=== PATIENT | female | born 1955 | race Caucasian/White ===

== ENCOUNTER → 2016-08-27 | Outpatient (REF) | payer MEDICARE, OTHER ==
[~2016-08-27] MED LIST: BUTR10DI2 TD; DETR4CAP10 PO; ESTR625TA PO; LAMI200T3 PO; LASI40TA PO; LEXA1TAB2 PO; LIDO1OIN2 TOP; MELO15TA4 PO; NEUR100C PO; NEUR300C PO; NEXI40CA PO; POTA10TA44 PO; RISP2TAB30 PO; ROPI1TAB PO; TEMA30CA PO; TYLE325T5 PO; VIT D PO
[2016-08-27 16:52] LABS: MEAN CORPUSCULAR HEMOGLOBIN 33.5 pg (27.0-33.0); MEAN CORPUSCULAR VOLUME 98.6 fl (80.0-96.0); RED CELL DISTRIBUTION WIDTH 12.9 % (11.5-14.5); WHITE BLOOD COUNT 5.2 K/mm3 (4.0-10.0)
[2016-08-27 16:57] LABS: ALBUMIN 3.3 GM/DL (3.2-5.2); ALKALINE PHOSPHATASE 120 U/L (45-117); ALT/SGPT 10 U/L (12-78); ANION GAP 8 MEQ/L (8-16); AST/SGOT 10 U/L (15-37); BILIRUBIN,TOTAL 0.2 MG/DL (0.2-1.0); BLOOD UREA NITROGEN 13 MG/DL (7-18); CALCIUM LEVEL 8.9 MG/DL (8.5-10.1); CARBON DIOXIDE LEVEL 31 MEQ/L (21-32); CHLORIDE LEVEL 105 MEQ/L (98-107); CHOLESTEROL LEVEL 203 MG/DL (<200); CREATININE FOR GFR 0.92 MG/DL (0.55-1.02); GLOMERULAR FILTRATION RATE > 60.0 (>51); GLUCOSE, FASTING 90 MG/DL (70-105); POTASSIUM SERUM 4.5 MEQ/L (3.5-5.1); SODIUM LEVEL 144 MEQ/L (136-145); TOTAL PROTEIN 6.6 GM/DL (6.4-8.2); TRIGLYCERIDES LEVEL 135 MG/DL (<150)
== END ==
LOC: M SFHCLERA 10:12
PROVIDERS: ATTEND Family Medicine
DX: Z13.220 Encounter for screening for lipoid disorders (principal); E55.9 Vitamin D deficiency, unspecified; Z79.899 Other long term (current) drug therapy
CPT/HCPCS: 80053; 80061; 82306; 85027; 90471; 90670; 90715; G0009; G0463

== ENCOUNTER → 2016-09-01 | Outpatient (CLI) | payer MEDICARE, OTHER ==
--- NOTE | 2016-09-01 13:06 | REPMRS ---
Patient History The patient states she had a clinical breast exam in 09/04 Patient is postmenopausal. Family history of endometrial cancer in mother under age 50, breast cancer in mother at age 50 or over, breast cancer in maternal aunt at age 50 or over, prostate cancer in brother at age 50, and prostate cancer in brother under age 50. Took hormonal contraceptives for 5 years. Taking unspecified hormones for 6 years. Digital Woman Screen Mammo: September 01, 2016 - Exam #: [id number] Bilateral CC and MLO view(s) were taken. Technologist: Smitha Deleon, Technologist Prior study comparison: July 22, 2015, digital bilateral screening mammo, performed at [facility]. May 2014, digital bilateral screening mammo, performed at [facility]. May 22, 2013, digital bilateral screening mammo, performed at [facility]. FINDINGS: There are scattered fibroglandular densities. There has been no change in the appearance of the mammogram from the prior studies. There is a mild amount of scattered fibroglandular density which is fairly symmetric. There is no interval development of dominant mass, architectural distortion, or clustered microcalcification suggestive of malignancy. ASSESSMENT: BI-RADS/ACR category 1 mammogram. Negative. Recommendation Routine screening mammogram in 1 year (for women over age 40). This mammogram was interpreted with the aid of an FDA-approved computer-aided dectection system. Electronically Signed By: Rd Sidhu MD 09/01/16 [id number]
== END ==
LOC: M WHC 12:08
PROVIDERS: ATTEND Nurse Practitioner Women's Health
DX: Z12.31 Encounter for screening mammogram for malignant neoplasm of breast (principal); Z78.0 Asymptomatic menopausal state; Z80.49 Family history of malignant neoplasm of other genital organs; Z80.3 Family history of malignant neoplasm of breast
CPT/HCPCS: G0202; G0463

== ENCOUNTER → 2017-05-28 | Outpatient (CLI) | payer MEDICARE, OTHER ==
[~2017-05-28] MED LIST changes: +BUTR10DI TD; -BUTR10DI2 TD; +DETR4CAP PO; -DETR4CAP10 PO; +LAMI1TAB9 PO; -LAMI200T3 PO; +POTA10TA17 PO; -POTA10TA44 PO; -RISP2TAB30 PO; +RISP2TAB32 PO
[2017-05-28 18:11] LABS: MEAN CORPUSCULAR HEMOGLOBIN 32.6 pg (27.0-33.0); MEAN CORPUSCULAR HGB CONC 33.3 g/dl (32.0-36.5); MEAN CORPUSCULAR VOLUME 97.7 fl (80.0-96.0); PLATELET COUNT, AUTOMATED 354 10^3/uL (150-450); RED CELL DISTRIBUTION WIDTH 11.9 % (11.5-14.5); WHITE BLOOD COUNT 7.4 10^3/uL (4.0-10.0)
[2017-05-28 18:28] LABS: ALBUMIN 3.4 GM/DL (3.2-5.2); ALBUMIN/GLOBULIN RATIO 0.87 (1.00-1.93); ALKALINE PHOSPHATASE 113 U/L (45-117); ALT/SGPT 17 U/L (12-78); ANION GAP 8 MEQ/L (8-16); AST/SGOT 8 U/L (7-37); BILIRUBIN,TOTAL 0.1 MG/DL (0.2-1.0); BLOOD UREA NITROGEN 14 MG/DL (7-18); CALCIUM LEVEL 8.9 MG/DL (8.5-10.1); CARBON DIOXIDE LEVEL 32 MEQ/L (21-32); CHLORIDE LEVEL 102 MEQ/L (98-107); CREATININE FOR GFR 0.81 MG/DL (0.55-1.02); GLOMERULAR FILTRATION RATE > 60.0 (>51); GLUCOSE, FASTING 67 MG/DL (70-105); POTASSIUM SERUM 4.2 MEQ/L (3.5-5.1); SODIUM LEVEL 142 MEQ/L (136-145); TOTAL PROTEIN 7.3 GM/DL (6.4-8.2)
== END ==
LOC: M SMT 14:04
PROVIDERS: ATTEND Specialist
DX: Z01.818 Encounter for other preprocedural examination (principal); N39.46 Mixed incontinence

== ENCOUNTER → 2017-06-29 | Outpatient (REF) | payer MEDICARE, OTHER ==
[2017-06-29 18:17] LABS: MAGNESIUM LEVEL 1.9 MG/DL (1.8-2.4)
== END ==
LOC: M SFHCLERA 12:16
DX: K21.0 Gastro-esophageal reflux disease with esophagitis (principal)
CPT/HCPCS: 83735

== ENCOUNTER → 2017-07-05 | Outpatient (CLI) | payer MEDICARE, OTHER ==
[2017-07-05 11:54] LABS: HEMATOCRIT 36.8 % (36.0-47.0); HEMOGLOBIN 12.2 g/dl (12.0-16.0); MEAN CORPUSCULAR HEMOGLOBIN 32.4 pg (27.0-33.0); MEAN CORPUSCULAR HGB CONC 33.2 g/dl (32.0-36.5); MEAN CORPUSCULAR VOLUME 97.9 fl (80.0-96.0); PLATELET COUNT, AUTOMATED 305 10^3/uL (150-450); RED BLOOD COUNT 3.76 10^6/uL (4.00-5.40); RED CELL DISTRIBUTION WIDTH 12.1 % (11.5-14.5); WHITE BLOOD COUNT 5.4 10^3/uL (4.0-10.0)
[2017-07-05 12:16] LABS: ALBUMIN 3.4 GM/DL (3.2-5.2); ALKALINE PHOSPHATASE 117 U/L (45-117); ALT/SGPT 16 U/L (12-78); ANION GAP 8 MEQ/L (8-16); AST/SGOT 13 U/L (7-37); BILIRUBIN,TOTAL 0.2 MG/DL (0.2-1.0); BLOOD UREA NITROGEN 12 MG/DL (7-18); CARBON DIOXIDE LEVEL 30 MEQ/L (21-32); CHLORIDE LEVEL 103 MEQ/L (98-107); CREATININE FOR GFR 0.85 MG/DL (0.55-1.02); GLOMERULAR FILTRATION RATE > 60.0 (>51); GLUCOSE, FASTING 177 MG/DL (70-105); POTASSIUM SERUM 3.5 MEQ/L (3.5-5.1); SODIUM LEVEL 141 MEQ/L (136-145); TOTAL PROTEIN 6.8 GM/DL (6.4-8.2)
[2017-07-05 12:31] LABS: APPEARANCE, URINE CLOUDY (CLEAR); BACTERIA, URINE AUTO 1+ (NEGATIVE); BILIRUBIN, URINE AUTO NEGATIVE (NEGATIVE); BLOOD, URINE BLOOD NEGATIVE (NEGATIVE); COLOR, URINE AMBER (YELLOW); GLUCOSE, URINE (UA) AUTO NEGATIVE (NEGATIVE); KETONE, URINE AUTO TRACE mg/dL (NEGATIVE); LEUKOCYTE ESTERASE, URINE AUTO 1+ (NEGATIVE); MUCUS, URINE SMALL (NEGATIVE); NITRITE, URINE AUTO NEGATIVE (NEGATIVE); PROTEIN, URINE AUTO NEGATIVE (NEGATIVE); RBC, URINE AUTO 2 /HPF (0-3); SPECIFIC GRAVITY URINE AUTO 1.014 (1.002-1.035); SQUAMOUS EPITHELIAL CELL UR AU 1 /HPF (0-6); UROBILINOGEN, URINE AUTO 0.2 mg/dL (0.0-2.0); WBC, URINE AUTO 8 /HPF (0-3)
== END ==
LOC: M LAB 10:44
DX: Z01.818 Encounter for other preprocedural examination (principal); N39.46 Mixed incontinence
CPT/HCPCS: 93005

== ENCOUNTER → 2017-07-09 | Outpatient (REF) | payer MEDICARE, OTHER ==
[2017-07-09 15:52] LABS: ESTIMATED AVERAGE GLUCOSE 120 MG/DL (60-110); HEMOGLOBIN A1c 5.8 %
== END ==
LOC: M SFHCLERA 08:36
DX: R73.9 Hyperglycemia, unspecified (principal)
CPT/HCPCS: 83036

== ENCOUNTER 2017-07-12 06:43 | Day surgery (SDC) | payer MEDICARE, OTHER ==
[~2017-07-12 06:43] MED LIST changes: +BOTULINUM INJ 100 UNITS (J0585) IM; -BUTR10DI TD; -DETR4CAP PO; -ESTR625TA PO; -LAMI1TAB9 PO; -LASI40TA PO; -LEXA1TAB2 PO; -LIDO1OIN2 TOP; -MELO15TA4 PO; -NEUR100C PO; -NEUR300C PO; -NEXI40CA PO; -POTA10TA17 PO; -RISP2TAB32 PO; -ROPI1TAB PO; -TEMA30CA PO; -TYLE325T5 PO; -VIT D PO
[2017-07-12] MEDS: BOTULINUM INJ 100 UNITS (J0585) XX ×2 (07:00)
[2017-07-12] MEDS: LR 1,000 ML IV ×2 (07:31)
[2017-07-12] MEDS: LIDOCAINE 2% MDV 20 ML VIAL As Ordered ×2 (08:47)
[2017-07-12] MEDS: LIDOCAINE 2% 5ML JELLY UROJET As Ordered ×2 (08:47)
[2017-07-12] MEDS: BOTULINUM INJ 100 UNITS (J0585) As Ordered ×2 (08:48)
[2017-07-12] MEDS ORDERED: GLYCOPYRROLATE INJ 0.2 MG/ML 2 ML VIAL As Ordered ×2 (08:50)
[2017-07-12] MEDS ORDERED: NEOSTIGMINE 10 MG/10 ML VIAL (J2710) As Ordered ×2 (08:50)
[2017-07-12] MEDS ORDERED: ONDANSETRON 4MG/2ML VIAL (J2405) As Ordered ×2 (08:50)
[2017-07-12] MEDS ORDERED: fentaNYL 100 MCG/2 ML INJECTION (J3010) As Ordered ×2 (08:52)
[2017-07-12] MEDS ORDERED: MIDAZOLAM INJ 2 MG/2 ML VIAL (J2250) As Ordered ×2 (08:52)
[2017-07-12] MEDS ORDERED: fentaNYL 100 MCG/2 ML INJECTION (J3010) IV ×2 (09:45)
[2017-07-12] MEDS ORDERED: ONDANSETRON 4MG/2ML VIAL (J2405) IV ×2 (09:45)
[2017-07-12] MEDS ORDERED: METOCLOPRAMIDE INJ 10MG/2ML VIAL (J2765) IV ×2 (09:45)
[2017-07-12] MEDS ORDERED: LR 1,000 ML IV ×2 (09:45)
[2017-07-12] MEDS: PERCOCET 5MG/325MG TAB PO ×4 (09:50→10:21)
== END 2017-07-12 12:10 | disposition home or self-care (01) ==
LOC: M SDC 06:43
DX: R39.15 Urgency of urination (principal); R35.0 Frequency of micturition; N39.41 Urge incontinence; N32.81 Overactive bladder; M54.12 Radiculopathy, cervical region; M54.16 Radiculopathy, lumbar region; F31.9 Bipolar disorder, unspecified; F41.9 Anxiety disorder, unspecified; F32.9 Major depressive disorder, single episode, unspecified; E55.9 Vitamin D deficiency, unspecified; K21.0 Gastro-esophageal reflux disease with esophagitis; K44.9 Diaphragmatic hernia without obstruction or gangrene; G25.81 Restless legs syndrome; R60.0 Localized edema; G47.00 Insomnia, unspecified; K22.70 Barrett's esophagus without dysplasia; M12.9 Arthropathy, unspecified; R42 Dizziness and giddiness; Z79.899 Other long term (current) drug therapy; Z90.3 Acquired absence of stomach [part of]; Z90.710 Acquired absence of both cervix and uterus; Z98.84 Bariatric surgery status
CPT/HCPCS: 52265

== ENCOUNTER 2017-08-06 14:08 | Emergency (ER) | payer MEDICARE, OTHER ==
[2017-08-06] MEDS: ONDANSETRON 4MG/2ML VIAL (J2405) IV ×2 (16:30)
[2017-08-06] MEDS: NS 1,000 ML IV ×2 (16:30)
[2017-08-06] MEDS: KETOROLAC 30 MG/ML VIAL (J1885) IV ×2 (16:56)
[2017-08-06 17:09] LABS: CALCIUM OXALATE CRYSTALS RFX SMALL; KETONE, URINE AUTO RFX TRACE mg/dL (NEGATIVE); MUCUS, URINE RFX SMALL (NEGATIVE); NITRITE, URINE AUTO RFX NEGATIVE (NEGATIVE); RBC, URINE AUTO RFX 21 /HPF (0-3); SQUAM EPITHELIAL CELL UR AURFX 11 /HPF (0-6); TRANSITIONAL EPITHELIAL AU RFX <1 /HPF
[2017-08-06 17:11] LABS: LEUKOCYTE ESTERASE UR AUTO RFX 2+ (NEGATIVE); WBC, URINE AUTO RFX 40 /HPF (0-3)
[2017-08-06] MEDS: MORPHINE 2 MG/ML 1ML SYRINGE (J2270) IV ×2 (17:14)
[2017-08-06 17:41] LABS: BASO # 0.1 10^3/uL (0.0-0.2); BASO % 0.7 % (0.0-1.0); EOS # 0.2 10^3/uL (0.0-0.50); EOS % 3.1 % (0.0-3.0); HEMATOCRIT 38.4 % (36.0-47.0); HEMOGLOBIN 12.9 g/dl (12.0-16.0); IMMATURE GRANULOCYTE % 0.3 % (0-3.0); LYMPH # 3.5 10^3/uL (1.5-4.5); LYMPH % 49.1 % (24.0-44.0); MEAN CORPUSCULAR HEMOGLOBIN 32.4 pg (27.0-33.0); MEAN CORPUSCULAR HGB CONC 33.6 g/dl (32.0-36.5); MEAN CORPUSCULAR VOLUME 96.5 fl (80.0-96.0); MONO # 0.6 10^3/uL (0.0-0.8); MONO % 7.8 % (0.0-5.0); NEUTROPHILS # 2.8 10^3/uL (1.8-7.7); PLATELET COUNT, AUTOMATED 333 10^3/uL (150-450); RED BLOOD COUNT 3.98 10^6/uL (4.00-5.40); RED CELL DISTRIBUTION WIDTH 12.1 % (11.5-14.5); WHITE BLOOD COUNT 7.1 10^3/uL (4.0-10.0)
[2017-08-06 18:01] LABS: ALBUMIN 3.6 GM/DL (3.2-5.2); ALBUMIN/GLOBULIN RATIO 0.88 (1.00-1.93); ALKALINE PHOSPHATASE 125 U/L (45-117); ALT/SGPT 15 U/L (12-78); AMYLASE 33 U/L (25-115); ANION GAP 7 MEQ/L (8-16); AST/SGOT 17 U/L (7-37); BILIRUBIN,DIRECT < 0.1 MG/DL (0.0-0.2); BILIRUBIN,TOTAL 0.3 MG/DL (0.2-1.0); BLOOD UREA NITROGEN 10 MG/DL (7-18); CALCIUM LEVEL 9.2 MG/DL (8.5-10.1); CARBON DIOXIDE LEVEL 33 MEQ/L (21-32); CHLORIDE LEVEL 101 MEQ/L (98-107); CREATININE FOR GFR 0.81 MG/DL (0.55-1.30); GLOMERULAR FILTRATION RATE > 60.0 (>51); GLUCOSE, FASTING 95 MG/DL (70-100); LIPASE 129 U/L (73-393); POTASSIUM SERUM 3.7 MEQ/L (3.5-5.1); SODIUM LEVEL 141 MEQ/L (136-145); TOTAL PROTEIN 7.7 GM/DL (6.4-8.2)
== END 2017-08-06 18:48 | disposition home or self-care (01) ==
LOC: M ED 14:08
DX: N20.1 Calculus of ureter (principal); N39.0 Urinary tract infection, site not specified; Z79.890 Hormone replacement therapy; Z79.899 Other long term (current) drug therapy; Z98.0 Intestinal bypass and anastomosis status; Z98.890 Other specified postprocedural states
CPT/HCPCS: J2405

== ENCOUNTER → 2017-08-23 | Outpatient (CLI) | payer MEDICARE, OTHER ==
[2017-08-23 14:05] LABS: HEMATOCRIT 34.9 % (36.0-47.0); HEMOGLOBIN 11.9 g/dl (12.0-16.0); MEAN CORPUSCULAR HEMOGLOBIN 33.2 pg (27.0-33.0); MEAN CORPUSCULAR HGB CONC 34.1 g/dl (32.0-36.5); MEAN CORPUSCULAR VOLUME 97.5 fl (80.0-96.0); PLATELET COUNT, AUTOMATED 356 10^3/uL (150-450); RED BLOOD COUNT 3.58 10^6/uL (4.00-5.40); RED CELL DISTRIBUTION WIDTH 12.2 % (11.5-14.5); WHITE BLOOD COUNT 6.1 10^3/uL (4.0-10.0)
[2017-08-23 14:07] LABS: BACTERIA, URINE LARGE AMOUNT; HYALINE CAST, URINE NONE SEEN /lpf (0-1); MICROSCOPIC EXAM PERFORMED
[2017-08-23 14:08] LABS: CALCIUM OXALATE CRYSTALS,URINE SMALL AMOUNT /hpf; SQUAMOUS EPITHELIAL CELL URINE LARGE AMOUNT /hpf (SMALL AMT)
[2017-08-23 14:25] LABS: ANION GAP 8 MEQ/L (8-16); BLOOD UREA NITROGEN 10 MG/DL (7-18); CALCIUM LEVEL 9.5 MG/DL (8.8-10.2); CARBON DIOXIDE LEVEL 33 MEQ/L (21-32); CHLORIDE LEVEL 98 MEQ/L (98-107); CREATININE FOR GFR 0.85 MG/DL (0.55-1.30); GLOMERULAR FILTRATION RATE > 60.0 (>45); GLUCOSE, FASTING 92 MG/DL (70-100); SODIUM LEVEL 139 MEQ/L (136-145)
== END ==
LOC: M SMT 10:30
DX: N20.0 Calculus of kidney (principal)
CPT/HCPCS: 80048

== ENCOUNTER 2017-08-27 07:14 | Day surgery (SDC) | payer MEDICARE, OTHER ==
[2017-08-27] MEDS ORDERED: LIDOCAINE 1% SDV 5 ML VIAL SQ (07:30)
[2017-08-27] MEDS: LR 1,000 ML IV (08:00)
[2017-08-27] MEDS ORDERED: fentaNYL 100 MCG/2 ML INJECTION (J3010) As Ordered (08:32)
[2017-08-27] MEDS ORDERED: dexameTHASONE 4 MG/ML 1ML VIAL (J1100) As Ordered (08:32)
[2017-08-27] MEDS ORDERED: MIDAZOLAM INJ 2 MG/2 ML VIAL (J2250) As Ordered (08:32)
[2017-08-27] MEDS ORDERED: LIDOCAINE 2% INJ 100 MG/5 ML SDV (FOR ANES.) As Ordered (08:32)
[2017-08-27] MEDS ORDERED: PROPOFOL 200 MG/20 ML VIAL As Ordered (08:32)
[2017-08-27] MEDS ORDERED: ONDANSETRON 4MG/2ML VIAL (J2405) As Ordered (08:32)
[2017-08-27] MEDS ORDERED: ePHEDrine SULFATE 25 MG/5 ML(5MG/ML) SYRINGE As Ordered (09:05)
[2017-08-27] MEDS: CONRAY-60 60% 50ML VIAL (Q9961) As Ordered (09:20)
[2017-08-27] MEDS ORDERED: SUGAMMADEX SODIUM 500 MG/5 ML VIAL (BRIDION) As Ordered (09:31)
[2017-08-27] MEDS ORDERED: fentaNYL 100 MCG/2 ML INJECTION (J3010) IV (10:15)
[2017-08-27] MEDS ORDERED: ONDANSETRON 4MG/2ML VIAL (J2405) IV (10:15)
[2017-08-27] MEDS ORDERED: HYDROmorphone HCL 1 MG/ML SYRINGE (J1170) IV (10:15)
[2017-08-27] MEDS ORDERED: LR 1,000 ML IV (10:15)
[2017-08-27] MEDS: PERCOCET 5MG/325MG TAB PO (10:35)
== END 2017-08-27 11:50 | disposition home or self-care (01) ==
LOC: M SDC 07:14
DX: N20.1 Calculus of ureter (principal); I10 Essential (primary) hypertension; K21.9 Gastro-esophageal reflux disease without esophagitis; F43.10 Post-traumatic stress disorder, unspecified; D64.9 Anemia, unspecified; G47.30 Sleep apnea, unspecified; Z87.891 Personal history of nicotine dependence; Z79.899 Other long term (current) drug therapy
CPT/HCPCS: 52356

== ENCOUNTER 2017-10-18 09:38 | Day surgery (SDC) | payer MEDICARE, OTHER ==
[~2017-10-18 09:38] MED LIST changes: -BOTULINUM INJ 100 UNITS (J0585) IM; +PROPOFOL 200 MG/20 ML VIAL As Ordered
[2017-10-18] MEDS: NS 1,000 ML IV (09:45)
== END 2017-10-18 11:44 | disposition home or self-care (01) ==
LOC: M OPP 09:38
DX: Z12.11 Encounter for screening for malignant neoplasm of colon (principal); Z86.010 Personal history of colon polyps; K57.30 Diverticulosis of large intestine without perforation or abscess without bleeding; K64.8 Other hemorrhoids; K22.70 Barrett's esophagus without dysplasia; K31.89 Other diseases of stomach and duodenum; Z98.84 Bariatric surgery status; E78.5 Hyperlipidemia, unspecified; K21.9 Gastro-esophageal reflux disease without esophagitis; D64.9 Anemia, unspecified; M54.9 Dorsalgia, unspecified; F41.9 Anxiety disorder, unspecified; F31.9 Bipolar disorder, unspecified; G47.8 Other sleep disorders; G47.30 Sleep apnea, unspecified; R06.83 Snoring; R60.9 Edema, unspecified; R32 Unspecified urinary incontinence; Z79.899 Other long term (current) drug therapy; Z80.8 Family history of malignant neoplasm of other organs or systems; Z80.3 Family history of malignant neoplasm of breast; Z80.49 Family history of malignant neoplasm of other genital organs
CPT/HCPCS: G0105

== ENCOUNTER → 2017-12-07 | Outpatient (REF) | payer MEDICARE, OTHER | LOC: M SFHCLERA 08:00 | DX: Z13.220 Encounter for screening for lipoid disorders (principal) ==

== ENCOUNTER → 2017-12-07 | Outpatient (CLI) | payer MEDICARE, OTHER ==
[2017-12-07 12:09] LABS: CHOLESTEROL LEVEL 216 MG/DL (<200); HDL CHOLESTEROL 60 MG/DL (>40); NON-HDL-C 156 MG/DL; TRIGLYCERIDES LEVEL 170 MG/DL (<150)
== END ==
LOC: M LRY 08:05
DX: Z13.220 Encounter for screening for lipoid disorders (principal); Z79.899 Other long term (current) drug therapy
CPT/HCPCS: 80061

== ENCOUNTER → 2018-01-10 | Outpatient (REF) | payer MEDICARE, OTHER ==
[2018-01-10 18:39] LABS: BACTERIA, URINE AUTO NEGATIVE (NEGATIVE); RBC, URINE AUTO 0 /HPF (0-3); SQUAMOUS EPITHELIAL CELL UR AU 0 /HPF (0-6); WBC, URINE AUTO 0 /HPF (0-3)
== END ==
LOC: M SMT 17:06
DX: N20.0 Calculus of kidney (principal)
CPT/HCPCS: 81015

== ENCOUNTER → 2018-03-11 | Outpatient (CLI) | payer MEDICARE, OTHER | LOC: M RAD 09:26 | DX: Z12.31 Encounter for screening mammogram for malignant neoplasm of breast (principal) | CPT/HCPCS: 77067 ==

== ENCOUNTER → 2018-07-14 | Outpatient (CLI) | payer MEDICARE, OTHER ==
[~2018-07-14] MED LIST changes: +BACT800T5 PO; +BUTR10DI TD; +CIPR-249 PO; +CITRTAB19 PO; +COLA100C5 PO; +DETR4CAP PO; +DITR1TAB PO; +ESTR625TA PO; +FURO20TA2 PO; +GABA-1171 PO; +LAMI1TAB9 PO; +LASI40TA9 PO; +LEXA1TAB2 PO; +LIDO1OIN2 TOP; +MECL-68 PO; +MELO15TA28 PO; +NEUR100C PO; +NEUR300C PO; +NEXI40CA PO; +OPUR1TAB PO; +PANT40TA3 PO; +PERC5TAB12 PO; +POTA10TA17 PO; -PROPOFOL 200 MG/20 ML VIAL As Ordered; +RISP2TAB32 PO; +ROPI1TAB PO; +TEMA30CA PO; +TYLE325T5 PO; +VIT D PO
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
== END ==
LOC: M PAIN 14:00
PROVIDERS: ATTEND Anesthesiology
DX: M96.1 Postlaminectomy syndrome, not elsewhere classified (principal); M51.16 Intervertebral disc disorders with radiculopathy, lumbar region; M51.17 Intervertebral disc disorders with radiculopathy, lumbosacral region; F31.9 Bipolar disorder, unspecified; F41.9 Anxiety disorder, unspecified; K21.9 Gastro-esophageal reflux disease without esophagitis; G25.81 Restless legs syndrome; E66.9 Obesity, unspecified; Z68.38 Body mass index [BMI] 38.0-38.9, adult; Z79.899 Other long term (current) drug therapy; Z98.84 Bariatric surgery status

== ENCOUNTER → 2018-07-18 | Outpatient (CLI) | payer MEDICARE, OTHER ==
[2018-07-18 13:06] LABS: THYROID STIMULATING HORMONE 1.43 uIU/ML (0.358-3.740)
[2018-07-18 13:08] LABS: FOLATE 16.7 NG/ML
[2018-07-19 14:55] LABS: CERULOPLASMIN 35.7 mg/dL (19.0-39.0)
== END ==
LOC: M LAB 11:16
PROVIDERS: ATTEND Psychiatry & Neurology Neurology
DX: R25.1 Tremor, unspecified (principal); E53.8 Deficiency of other specified B group vitamins; E03.9 Hypothyroidism, unspecified

== ENCOUNTER → 2018-07-26 | Outpatient (CLI) | payer MEDICARE, OTHER ==
[~2018-07-26] MED LIST changes: +ISOVUE-M 300 61% 15ML VIAL (Q9967) As Ordered ONE; +LIDOCAINE 1% SDV INJ 30 ML VIAL As Ordered ONE; +diazePAM 5 MG TAB As Ordered ONE; +methylPREDNISolone SUSP 40 MG/ML (DEPO-medrol) VIAL (J1030) As Ordered ONE; +oxyCODONE 5MG TAB As Ordered ONE
--- NOTE | 2018-07-26 15:02 | REP ---
Sacrum and coccyx: Limited study three views. History: Caudal epidural injection for pain. 31 seconds of fluoroscopy time is reported. Findings: A sequence of three last image hold fluoroscopically obtained spot radiographs of the sacrum document needle position and contrast injection associated with caudal epidural injection procedure. Electronically Signed by Arthur Sidhu MD 07/26/2018 08:40 P
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
== END ==
LOC: M PAIN 10:15
PROVIDERS: ATTEND Anesthesiology
DX: M96.1 Postlaminectomy syndrome, not elsewhere classified (principal); F31.9 Bipolar disorder, unspecified; F41.9 Anxiety disorder, unspecified; E55.9 Vitamin D deficiency, unspecified; K21.9 Gastro-esophageal reflux disease without esophagitis; G25.81 Restless legs syndrome; Z79.899 Other long term (current) drug therapy; Z98.84 Bariatric surgery status
CPT/HCPCS: 62323; 90834; J1030; Q9967

== ENCOUNTER → 2018-08-26 | Outpatient (CLI) | payer MEDICARE, OTHER ==
[~2018-08-26] MED LIST changes: -ISOVUE-M 300 61% 15ML VIAL (Q9967) As Ordered ONE; -LIDOCAINE 1% SDV INJ 30 ML VIAL As Ordered ONE; -diazePAM 5 MG TAB As Ordered ONE; -methylPREDNISolone SUSP 40 MG/ML (DEPO-medrol) VIAL (J1030) As Ordered ONE; -oxyCODONE 5MG TAB As Ordered ONE
[2018-08-26 14:18] LABS: BLOOD UREA NITROGEN 19 MG/DL (7-18); CREATININE FOR GFR 0.89 MG/DL (0.55-1.30); GLOMERULAR FILTRATION RATE > 60.0 (>45)
== END ==
LOC: M LAB 12:46
PROVIDERS: ATTEND Anesthesiology
DX: M96.1 Postlaminectomy syndrome, not elsewhere classified (principal)

== ENCOUNTER → 2018-08-26 | Outpatient (CLI) | payer MEDICARE, OTHER ==
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
== END ==
LOC: M PAIN 10:45
PROVIDERS: ATTEND Anesthesiology
DX: M51.16 Intervertebral disc disorders with radiculopathy, lumbar region (principal); M96.1 Postlaminectomy syndrome, not elsewhere classified; Z79.899 Other long term (current) drug therapy; Z86.59 Personal history of other mental and behavioral disorders
CPT/HCPCS: 36415; 82565; 84520; G0463

== ENCOUNTER → 2018-08-31 | Outpatient (CLI) | payer MEDICARE, OTHER ==
[~2018-08-31] MED LIST changes: +PROHANCE 279.3MG/ML 15ML VIAL (A9576) As Ordered ONE; +PROHANCE 279.3MG/ML 5ML VIAL (A9576) As Ordered ONE
--- NOTE | 2018-08-31 10:07 | REP ---
MR LUMBAR SPINE WITHOUT AND WITH CONTRAST: HISTORY: Postlaminectomy syndrome. CONTRAST: ProHance 20 mL. COMPARISON: 03/19/2015. Decreased signal intensity on T2-weighted images is present in the L3-4 through L5-S1 intervertebral discs. The discs are decreased in height. These findings are consistent with disc degeneration. There is no disc bulge or herniation at the L1-2 and L2-3 levels. The nerves exit the neural foramina without compression. A diffuse disc bulge is present at the L3-4 level. There is minimal compression of the thecal sac. The L3 nerves exit the neural foramina without compression. The patient is status-post L4-5 anterior and posterior spinal effusion and laminectomy. Metal hardware and bone graft material are present. A diffuse disc bulge is present. This abuts the thecal sac. There is hypertrophy of the posterior articulating facets. The L4 nerves exit the neural foramina without compression. A left laminectomy defect is present. A small amount of enhancing scar tissue is present in the left lateral aspect of the spinal canal. The scar tissue involves the left L5 nerve. A diffuse disc bulge is present at the L5-S1 level. This abuts the S1 nerves. There is no thecal sac compression. There is hypertrophy of the posterior articulating facets. The L5 nerves exit the neural foramina without compression. The conus medullaris is normal in appearance terminating at the level of the L1-2 intervertebral discs. A hemangioma is present in the L2 vertebral body. Increased signal intensity on T2-weighted images is present in the end plates of the L4 and 5 vertebral bodies. This represents degenerative change. There is no subluxation. IMPRESSION: 1. Diffuse disc bulges at the L3-4 level with minimal thecal sac compression. 2. The patient is status-post L4-5 anterior and posterior spinal effusion. There is anatomic alignment. Scar tissues involves the left L5 nerve. 3. Diffuse disc bulge at the L5-S1 level. This abuts the S1 nerves. There is no significant change compared to the previous study. Electronically Signed by Hany Cuba MD 08/31/2018 10:10 A
== END ==
LOC: M RAD 08:28
PROVIDERS: ATTEND Anesthesiology
DX: M96.1 Postlaminectomy syndrome, not elsewhere classified (principal); M51.36 Other intervertebral disc degeneration, lumbar region; M51.37 Other intervertebral disc degeneration, lumbosacral region
CPT/HCPCS: 72158; A9576

== ENCOUNTER → 2018-10-12 | Outpatient (CLI) | payer MEDICARE, OTHER ==
[~2018-10-12] MED LIST changes: +BUPIVACAINE HCL 0.25% 30 ML VIAL As Ordered ONE; +ISOVUE-M 300 61% 15ML VIAL (Q9967) As Ordered ONE; +LIDOCAINE 1% SDV INJ 30 ML VIAL As Ordered ONE; -PROHANCE 279.3MG/ML 15ML VIAL (A9576) As Ordered ONE; -PROHANCE 279.3MG/ML 5ML VIAL (A9576) As Ordered ONE; +dexameTHASONE 10 MG/1 ML VIAL PRES.FREE (J1100) As Ordered ONE; +diazePAM 5 MG TAB As Ordered ONE; +oxyCODONE 5MG TAB As Ordered ONE
--- NOTE | 2018-10-12 16:20 | REP ---
Partial lumbar spine series: 85 views . History: Injection procedure for pain. 1 minute six seconds of fluoroscopy time is reported. Findings: A sequence of 85 fluoroscopically obtained last image hold procedural spot radiographs of the lumbar spine document needle position and contrast injection associated with injection procedure. Electronically Signed by Arthur Sidhu MD 10/12/2018 04:12 P
--- NOTE | 2018-10-31 00:34 | ECWPNPC ---
PATIENT NAME: DUONG NIETO : 1955 GENDER: FEMALE VISIT DATE: 10/12/2018 DISCHARGE DATE: 10/12/18 1631 VISIT LOCKED DATE TIME: PHYSICIAN: PÉREZ QUINTERO MD RESOURCE: PÉREZ QUINTERO MD REASON FOR APPOINTMENT 1. LEFT L4, L5 TRANSFORAMINAL HISTORY OF PRESENT ILLNESS HISTORY OF PRESENT ILLNESS: PAIN THE PATIENT DESCRIBES THE PAIN... FALL RISK SCREENING: SCREENING :NO FALLS REPORTED IN THE LAST YEAR CURRENT MEDICATIONS TAKING RISPERIDONE 4 MG TABLET 1 TABLET ORALLY ONCE A DAY, NOTES: 10/11/18 TAKING LAMICTAL 200 MG TABLET 2 TABLET ORALLY BID, NOTES: 10/12/18 TAKING DEPEND UNDERWEAR LARGE/XL - MISCELLANEOUS DIRECTED USE DIRECTED FOR LEAKAGE (DX. N39.3) FOUR TIMES DAILY NEEDED TAKING LEXAPRO 20 20 MG TABLET 1 TABLET ORAL ONCE DAILY, NOTES: 10/12/18 TAKING CALCIUM + D3 600-200 MG-UNIT TABLET 1 TAB ORALLY DAILY, NOTES: 10/12/18 TAKING MULTIVITAMIN WOMEN - TABLET 1 TAB ORALLY DAILY, NOTES: 10/12/18 TAKING CPAP MASK . . CPAP FULL FACE MASK, FILTERS, TUBING AND OTHER SUPPLIES FOR USE WITH CPAP DIRECTED TAKING FUROSEMIDE 20 MG TABLET 1 TABLET ORALLY BID, NOTES: 10/12/18 TAKING ACIPHEX 20 MG TABLET DELAYED RELEASE 1 TABLET ORALLY ONCE A DAY, NOTES: 10/11/18 TAKING ROPINIROLE HCL 1MG TABLET TAKE 1 TABLET 1 TO 3 HOURS BEFORE BEDTIME ONCE A DAY ORALLY BEFORE BEDTIME, NOTES: 10/11/18 TAKING OPURITY 1 CAP ORALLY BID, NOTES: 10/12/18 TAKING DOCUSATE SODIUM 100 MG CAPSULE 1 CAP ORALLY BID, NOTES: 10/12/18 TAKING RABEPRAZOLE SODIUM 20 MG TABLET DELAYED RELEASE 1 CAP ORALLY NIGHTLY, NOTES: 10/11/18 TAKING PENTOSAN POLYSULFATE SODIUM 100 MG CAPSULE ORALLY TID, NOTES: 10/12/18 TAKING GABAPENTIN 100 MG CAPSULE 1 CAPSULE ORALLY THREE TIMES A DAY, NOTES: 10/12/18 TAKING MECLIZINE HCL 25 MG TABLET 1 TABLET NEEDED ORALLY THREE TIMES DAILY, NOTES: 10/11/18 NOT-TAKING DETROL LA 4 MG CAPSULE EXTENDED RELEASE 24 HOUR 1 CAPSULE ORALLY BID NOT-TAKING DIFLUCAN 200 MG TABLET 1 TABLET ORALLY WEEKLY NOT-TAKING MICONAZOLE ANTIFUNGAL 2 % CREAM 1 APPLICATION TO AFFECTED AREA EXTERNALLY TWICE A DAY TO AFFECTED FINGER NOT-TAKING ITRACONAZOLE 100 MG CAPSULE 2 CAPSULE AFTER A MEAL ORALLY DAILY X 1 WEEK THEN STOP FORE 2 WEEKS THEN REPEAT X 1 WEEK THEN STOP NOT-TAKING BETAMETHASONE DIPROPIONATE AUG 0.05 % OINTMENT 1 APPLICATION TO AFFECTED AREA EXTERNALLY ONCE A DAY NOT-TAKING CPAP MASK DIRECTED CPAP MASK AND ALL RELATED SUPPLIES (NASAL MASK, NASAL PILLOWS, HEATED TUBING) DX G47.33 NOT-TAKING ELMIRON 100 MG CAPSULE DIRECTED ORALLY THREE TIMES A DAY, NOTES: 07/26 0730 NOT-TAKING CORN REMOVERS 40 % PAD 1 PAD TO AFFECTED AREA OF RIGHT 5TH TOE EXTERNALLY DAILY NOT-TAKING BETAMETHASONE VALERATE 0.1 % OINTMENT 1 APPLICATION TO AFFECTED AREA OF RIGHT THUMB EXTERNALLY DAILY NOT-TAKING COMPRESSION STOCKINGS 15-20 MMHG . DIRECTED WAIST HIGH COMPRESSION STOCKINGS FOR VARICOSE VEINS WITH BLE EDEMA DIRECTED ON IN THE MORNING, OFF AT NIGHT -DX I83.893 MEDICATION LIST REVIEWED AND RECONCILED WITH THE PATIENT PAST MEDICAL HISTORY CERVICALGIA LOW BACK PAIN RADIATING TO BOTH LEGS RADICULOPATHY AFFECTING UPPER EXTREMITY BIPOLAR DISORDER ANXIETY AND DEPRESSION VITAMIN D DEFICIENCY GERD (GASTROESOPHAGEAL REFLUX DISEASE) RESTLESS LEGS SYNDROME (RLS) EDEMA INSOMNIA OVERACTIVE BLADDER ALLERGIES N.K.D.A. SURGICAL HISTORY BACK SURGERY X3 2014 TWO NECK SURGERIES 2014 LEFT HAND SURGERY 2013 FULL HYSTERECTOMY, DONE FOR BENIGN REASONS 1980 GASTRIC SLEEVE 04/06/2016 BOTOX IN BLADDER 03/22/2017 KIDNEY STONE - BLASTED 08/2017 CYSTOSCOPY W/ RIGHT STENT REMOVAL 09/08/2017 BILATERAL OOPHRECTOMY FOR BENIGN TUMOR 1981 FAMILY HISTORY FATHER: , LUNG, SPREAD TO BONES, DIAGNOSED WITH CANCER MOTHER: , UTERIAN, BREAST AND LIVER, CANCER, HYPERTENSION, HEART DISEASE, STROKE SIBLINGS: ALIVE, BROTHER HAD PROSTATE CA 3 BROTHER(S) , 1 SISTER(S) . 1 SON(S) - HEALTHY. MOTHER HAD PANCREATIC CANCER\\\\\\\\\\\\\\\\NDENIES FAMILY HX OF MELANOMA. SOCIAL HISTORY GENERAL: TOBACCO USE ARE YOU A:NONSMOKER HIV / HEP-C SCREENING HIV TEST OFFERED TO PATIENT:YES DATE OFFERED:05/16/2018 TEST ACCEPTED:YES HEP-C TEST OFFERED TO PATIENT:YES DATE OFFERED:05/16/2018 TEST ACCEPTED:YES BROCHURE PROVIDED TO PATIENTYES OTHERS AT HOME: SPOUSE. EDUCATION LEVEL OF EDUCATION:HIGH SCHOOL DIET: REGULAR. LANGUAGE LANGUAGES SPOKEN:SINGAPOREAN DOMESTIC VIOLENCE DO YOU FEEL SAFE IN YOUR ENVIRONMENT?YES BMI CARE GOAL FOLLOW-UP ABOVE NORMAL BMI FOLLOW-UPDIETARY MANAGEMENT EDUCATION, GUIDANCE, AND COUNSELING RECREATIONAL DRUG USE DRUG USE?NO EXERCISE: NO REGULAR EXERCISE. LEARNING BARRIERS / SPECIAL NEEDS CHANGE FROM LAST VISIT?NO BARRIERS TO LEARNING?NO HEARING IMPAIRED?NO VISION IMPAIRED?YES COGNITIVELY IMPAIRED?NO :CORRECTIVE LENSES READINESS TO LEARN?YES LEARNING PREFERENCES?NO LEARNING CAPABILITIES PRESENT?YES EMOTIONAL BARRIERS?NO SPECIAL DEVICES?YES :CANE, WHEELCHAIR OCCASSIONALLY ANTHROPOMETRIST NEEDED?NO PAIN CLINIC PFS, CLERGY, PUBLIC HEALTH REFERRALS HAS THE PATIENT BEEN EDUCATED REGARDING HIS/HER PLAN OF CARE?YES HAS THE PATIENT BEEN EDUCATED REGARDING PAIN, THE RISK FOR PAIN, THE IMPORTANCE OF EFFECTIVE PAIN MANAGEMENT, AND THE PAIN ASSESSMENT PROCESS?YES LATEX QUESTIONNAIRE LATEX ALLERGY : HAVE YOU EVER DEVELOPED ANY TYPE OF REACTION AFTER HANDLING LATEX PRODUCTS SUCH RUBBER GLOVES, CONDOMS, DIAPHRAGMS, BALLOONS, SOCKS, OR UNDERWEAR?NO LATEX ALLERGY : HAVE YOU EVER DEVELOPED ANY TYPE OF REACTION DURING OR AFTER DENTAL APPOINTMENT, VAGINAL/RECTAL EXAMINATION, SURGICAL PROCEDURE, OR ANY OTHER EXPOSURE?NO DATE ASKED : 08/26/2018 LATEX RISK : HAVE YOU EVER HAD ANY DIFFICULTY BREATHING OR HIVES AFTER EATING OR HANDLING ANY FRUITS, OR VEGETABLES; SUCH KIWI, BANANAS, STONE FRUITS, OR CHESTNUTSNO LATEX RISK : DO YOU HAVE A PREVIOUS PERSONAL HISTORY OF MORE THAN NINE SURGERIES, SPINA BIFIDA, OR REPEATED CATHERTIZATIONS? NO LATEX RISK : ARE YOU FREQUENTLY EXPOSED TO LATEX PRODUCTS IN YOUR OCCUPATION?NO CAFFEINE CAFFEINE USE?YES HOW OFTEN AND HOW MUCH? EVERY ONCE IN AWHILE ADVANCE DIRECTIVE ADVANCE DIRECTIVE DISCUSSED WITH PATIENT:YES PT DOES NOT HAVE ANY ADVANCED DIRECTIVES AND SHE DECLINES INFORAMATION ON HCP AT THIS TIME. SIKHISM [id number] NONE MARITAL STATUS: . ALCOHOL SCREENING POINTS: 1, INTERPRETATION: NEGATIVE. OCCUPATION: UNEMPLOYED. SEXUAL HX HAD SEX IN THE LAST 12 MONTHS (VAGINAL, ORAL, OR ANAL)?NO LMP:HYSTER HAVE YOU EVER HAD AN STD?NO 07/26/18 REVIEWED WITH PT. ADREVIEWED WITH PT 08/26/18 1155 LASREVIEWED WITH PATIENT 09/23/28 1142 JS. HOSPITALIZATION/MAJOR DIAGNOSTIC PROCEDURE CHILDBIRTH 1977 SURGERIES REVIEW OF SYSTEMS REVIEWED BY: PROVIDER: . CONSTITUTIONAL: ANY CHANGE IN YOUR MEDICAL CONDITION? NO . CHILLS NO . FEVER NO . INFECTION: DO YOU HAVE NEW INFECTIONS? NO . DO YOU HAVE HISTORY OF MRSA? NO . MUSCULOSKELETAL: ANY NEW PATTERNS OF PAIN OR NUMBNESS? NO . GASTROENTEROLOGY: ANY NEW CHANGE IN BOWEL CONTROL? NO . GENITOURINARY: ANY NEW CHANGE IN BLADDER CONTROL? NO . IS THERE A CHANCE YOU COULD BE ? NO . HEMATOLOGY/LYMPH: DO YOU TAKE ANY BLOOD THINNERS? (FOR EXAMPLE- COUMADIN, PLAVIX, AGGRENOX, PLATEL, PRADAXA, OR XARELTO) NO . WHEN WAS YOUR LAST DOSE? DATE: TIME: . NEUROLOGY: HAVE YOU FALLEN IN THE PAST 12 MONTHS? YES, PRIOR TO LAST VISIT . ANY NEW EXTREMITY NUMBNESS OR WEAKNESS? YES, LEFT LEG PAIN AND WEAKNESS . CARDIOLOGY: DO YOU HAVE A PACEMAKER OR DEFIBRILLATOR? NO . RESPIRATORY: HAVE YOU BEEN SICK IN THE PAST WEEK? NO . FEVER NO . FLU LIKE SYMPTOMS? NO . COUGH NO . INTEGUMENTARY: DO YOU HAVE ANY RASHES OR OPEN SORES? NO . ALLERGIC/IMMUNO: ARE YOU ALLERGIC TO IV DYE? NO . ANY NEW ALLERGIES? NO . PSYCHIATRIC: DO YOU HAVE THOUGHTS OF HURTING YOURSELF OR SOMEONE ELSE? NO . ARE YOU ABUSED, NEGLECTED, OR IN AN UNSAFE ENVIRONMENT? NO . ENDOCRINOLOGY: ARE YOU DIABETIC? NO . OTHER: DO YOU NEED ANY PRESCRIPTIONS? NO . IF YES, PLEASE LIST: ____ . ANY NEW PROBLEMS WITH YOUR MEDICATIONS? NO . WHEN DID YOU LAST EAT? 10/12/18 0730 AM . WHEN DID YOU LAST DRINK? 10/12/18 0900 . WHAT DID YOU LAST DRINK? WATER . NAME OF PERSON DRIVING YOU HOME? YUSRA . DO YOU HAVE ANY OTHER QUESTIONS OR CONCERNS NO . VITAL SIGNS WT 251 LBS, HT 66.5 IN, BMI 39.90 INDEX, BP 129/60 MM HG, HR 87 /MIN, RR 18 /MIN, TEMP 97.7 F, OXYGEN SAT % 92%, NA INITIALS AW 1316, REVIEWED BY: EM. ASSESSMENTS LUMBAR POST-LAMINECTOMY SYNDROME - M96.1 (PRIMARY) PROCEDURES PN LUMBAR TRANSFORAMINAL BLOCKS PRE PROCEDURE DIAGNOSIS LUMBAR POST LAMINECTOMY PAIN SYNDROME POST PROCEDURE DIAGNOSIS LUMBAR POST LAMINECTOMY PAIN SYNDROME PROCEDURE LEFT L4 AND LEFT L5 TRANSFORAMINAL EPIDURAL STEROID INJECTION UNDER FLUOROSCOPIC GUIDANCE SURGEON DR PÉREZ QUINTERO AIRPLANE NAVIGATOR NONE ANESTHESIA LOCAL PRE PROCEDURE NOTE PATIENT WITH HISTORY OF CHRONIC LOW BACK PAIN. I EVALUATED THE PATIENT AND REVIEWED THE CHART. I WENT OVER THE RISKS, ALTERNATIVES, AND BENEFITS ASSOCIATED WITH THIS PROCEDURE. THE PATIENT WOULD LIKE TO PROCEED AND GIVES CONSENT TO PERFORMED THE PROCEDURE. THE PATIENT DENIES UNEXPLAINABLE WEIGHT LOSS, FEVER, CHILLS, OR CHANGES IN URINARY OR BOWEL CONTROL DESCRIPTION OF PROCEDURE THE PATIENT WAS BROUGHT TO THE PROCEDURE ROOM AND PLACED IN THE PRONE POSITION. THE LUMBOSACRAL AREA WAS CLEANED WITH BETADINE SOLUTION AND DRAPED ASEPTICALLY. THE PROCEDURE WAS DONE UNDER STERILE CONDITIONS. I CHECKED LATERALITY AND THE LEVEL WHERE THE PROCEDURE WAS GOING TO BE PERFORMED WITH THE PATIENT AND THE SUPPORTING STAFF AT THE MOMENT OF THE TIME OUT IN THE PROCEDURE ROOM. UNDER FLUOROSCOPIC GUIDANCE, TARGETS WERE SELECTED AT THE LEFT TRANSFORAMINAL OPENING OF L4 AND L5. TARGET POINT WAS SELECTED AFTER LATERAL ROTATION AND TILT OF THE MAGNIFIER OF THE C-ARM. LIDOCAINE 0.5% WAS USED TO NUMB THE SKIN AND THE SUBCUTANEOUS TISSUE BELOW IT. AN EPIMED INTRODUCER 18-GAUGE WAS ADVANCED UNTIL WE WENT CLOSE TO THE SELECTED TRANSFORAMINAL OPENINGS. AFTER PROPER POSITION OF THE NEEDLES WAS ACHIEVED, A 22-GAUGE EPIMED NEEDLE WAS PLACED INSIDE OF THE INTRODUCER AND ADVANCED TO THE TRANSFORAMINAL OPENING OF THE SELECTED SITES. WHEN PROPER POSITION OF THE NEEDLE WAS ACHIEVED, ISOVUE M DYE 30%, 0.25 ML, WAS INJECTED SHOWING ADEQUATE SPREAD OF THE DYE. THIS WAS DONE UNDER DIGITAL SUBTRACTION AND ANGIOGRAPHY. THERE WAS NO VASCULAR UPDATE. THEN, A SOLUTION OF 2 ML OF BUPIVACAINE 0.25% AND DEXAMETHASONE 10 MG WAS INJECTED AT EACH SITE. THERE WAS NO EVIDENCE OF BLOOD, PARESTHESIA OR CEREBROSPINAL FLUID DURING THE PROCEDURE. THE PATIENT WAS SENT TO THE RECOVERY ROOM. THE PATIENT WAS MOVING THE EXTREMITIES AND DOING WELL. THERE WAS NO COMPLICATION DURING THE PROCEDURE. FLUOROSCOPY TIME WAS 66 SECONDS POST PROCEDURE NOTE THE PROCEDURE DONE WAS DISCUSSED WITH THE PATIENT. THE PATIENT WILL BE SEEN IN A FOLLOW UP IN THE NEXT FEW WEEKS. INSTRUCTIONS WERE GIVEN, QUESTIONS WERE ANSWERED, AND THE PATIENT EXPRESSED UNDERSTANDING AND AGREES WITH THE PLAN. I, KALYN CHAUDHARY, DOCUMENTED THE ABOVE INFORMATION ACTING A SCRIBE FOR DR. QUINTERO. I HAVE REVIEWED THE ABOVE DOCUMENT, WRITTEN BY KALYN NORWOOD AND I VERIFY THAT IT IS ACCURATE. DIAGNOSTIC IMAGING [facility]UORO GUIDE SPINE INJECTION (PAIN)[id number] PROCEDURE CODES 95154 INJ FORAMEN EPIDURAL L/S, [place]: [place] [address] INJ FORAMEN EPIDURAL ADD-ON, MODIFIERS: LT 6045F RADXPS IN END [id number] PXD DISPOSITION & COMMUNICATION FOLLOW UP 3 WEEKS ELECTRONICALLY SIGNED BY PÉREZ QUINTERO MD, MD ON 10/30/2018 AT 04:00 PM EDT DISCLAIMER : THIS IS A VISIT SUMMARY EXTRACTED FROM THE [employer] CHART. IT IS NOT A COPY OF THE [employer] PROGRESS NOTE. MTDD
== END ==
LOC: M PAIN 13:00
PROVIDERS: ATTEND Anesthesiology
DX: M96.1 Postlaminectomy syndrome, not elsewhere classified (principal); G25.81 Restless legs syndrome; Z79.899 Other long term (current) drug therapy; Z86.59 Personal history of other mental and behavioral disorders; Z98.84 Bariatric surgery status
CPT/HCPCS: 64483; 64484; J1100; Q9967

== ENCOUNTER → 2018-11-03 | Outpatient (CLI) | payer MEDICARE, OTHER ==
[~2018-11-03] MED LIST changes: -BUPIVACAINE HCL 0.25% 30 ML VIAL As Ordered ONE; -ISOVUE-M 300 61% 15ML VIAL (Q9967) As Ordered ONE; -LIDOCAINE 1% SDV INJ 30 ML VIAL As Ordered ONE; -dexameTHASONE 10 MG/1 ML VIAL PRES.FREE (J1100) As Ordered ONE; -diazePAM 5 MG TAB As Ordered ONE; -oxyCODONE 5MG TAB As Ordered ONE
--- NOTE | 2018-11-14 00:25 | ECWPNPC ---
PATIENT NAME: DUONG NIETO : 1955 GENDER: FEMALE VISIT DATE: 11/03/2018 DISCHARGE DATE: 11/03/181538 VISIT LOCKED DATE TIME: PHYSICIAN: PÉREZ QUINTERO MD RESOURCE: PÉREZ QUINTERO MD REASON FOR APPOINTMENT 1. POST PROC HISTORY OF PRESENT ILLNESS HISTORY OF PRESENT ILLNESS: PAIN THE PATIENT DESCRIBES THE PAIN... 63 YEAR OLD FEMALE PATIENT WITH A HISTORY OF LOW BACK AND LEG PAIN. THE PATIENT DESCRIBES THE PAIN BURNING, STABBING, SHOOTING, SHARP, AND CONTINUOUS WITH A PAIN SCORE OF 1-2/10 DEPENDING ON PHYSICAL ACTIVITY. THE PATIENT RECEIVED A TRANSFORAMINAL LUMBAR EPIDURAL DONE ON 10/12/2018, WHICH THE PATIENT REPORTS SHE IS EXPERIENCING GOOD PAIN RELIEF FROM THE PROCEDURE. THE PATIENT SAYS THE PROCEDURE IS HELPING HER BE MORE FUNCTIONAL AND MOBILE THROUGH THE DAY. PATIENT DENIES UNEXPLAINABLE WEIGHT LOSS, FEVER, CHILLS, NEW CHANGES ON HER URINARY OR BOWEL CONTROL. FALL RISK SCREENING: SCREENING :NO FALLS REPORTED IN THE LAST YEAR CURRENT MEDICATIONS TAKING RISPERIDONE 4 MG TABLET 1 TABLET ORALLY ONCE A DAY TAKING LAMICTAL 200 MG TABLET 2 TABLET ORALLY BID TAKING DEPEND UNDERWEAR LARGE/XL - MISCELLANEOUS DIRECTED USE DIRECTED FOR LEAKAGE (DX. N39.3) FOUR TIMES DAILY NEEDED TAKING LEXAPRO 20 20 MG TABLET 1 TABLET ORAL ONCE DAILY TAKING CALCIUM + D3 600-200 MG-UNIT TABLET 1 TAB ORALLY DAILY TAKING MULTIVITAMIN WOMEN - TABLET 1 TAB ORALLY DAILY TAKING CPAP MASK . . CPAP FULL FACE MASK, FILTERS, TUBING AND OTHER SUPPLIES FOR USE WITH CPAP DIRECTED TAKING FUROSEMIDE 20 MG TABLET 1 TABLET ORALLY BID TAKING ACIPHEX 20 MG TABLET DELAYED RELEASE 1 TABLET ORALLY ONCE A DAY TAKING ROPINIROLE HCL 1MG TABLET TAKE 1 TABLET 1 TO 3 HOURS BEFORE BEDTIME ONCE A DAY ORALLY BEFORE BEDTIME TAKING OPURITY 1 CAP ORALLY BID TAKING DOCUSATE SODIUM 100 MG CAPSULE 1 CAP ORALLY BID TAKING RABEPRAZOLE SODIUM 20 MG TABLET DELAYED RELEASE 1 CAP ORALLY NIGHTLY TAKING GABAPENTIN 100 MG CAPSULE 1 CAPSULE ORALLY THREE TIMES A DAY, NOTES: 10/12/18 TAKING MECLIZINE HCL 25 MG TABLET 1 TABLET NEEDED ORALLY THREE TIMES DAILY TAKING BETAMETHASONE DIPROPIONATE AUG 0.05 % OINTMENT 1 APPLICATION TO AFFECTED AREA EXTERNALLY ONCE A DAY NOT-TAKING PENTOSAN POLYSULFATE SODIUM 100 MG CAPSULE ORALLY TID NOT-TAKING DETROL LA 4 MG CAPSULE EXTENDED RELEASE 24 HOUR 1 CAPSULE ORALLY BID NOT-TAKING DIFLUCAN 200 MG TABLET 1 TABLET ORALLY WEEKLY NOT-TAKING MICONAZOLE ANTIFUNGAL 2 % CREAM 1 APPLICATION TO AFFECTED AREA EXTERNALLY TWICE A DAY TO AFFECTED FINGER NOT-TAKING ITRACONAZOLE 100 MG CAPSULE 2 CAPSULE AFTER A MEAL ORALLY DAILY X 1 WEEK THEN STOP FORE 2 WEEKS THEN REPEAT X 1 WEEK THEN STOP NOT-TAKING CPAP MASK DIRECTED CPAP MASK AND ALL RELATED SUPPLIES (NASAL MASK, NASAL PILLOWS, HEATED TUBING) DX G47.33 NOT-TAKING ELMIRON 100 MG CAPSULE DIRECTED ORALLY THREE TIMES A DAY, NOTES: 07/26 0730 NOT-TAKING CORN REMOVERS 40 % PAD 1 PAD TO AFFECTED AREA OF RIGHT 5TH TOE EXTERNALLY DAILY NOT-TAKING BETAMETHASONE VALERATE 0.1 % OINTMENT 1 APPLICATION TO AFFECTED AREA OF RIGHT THUMB EXTERNALLY DAILY NOT-TAKING COMPRESSION STOCKINGS 15-20 MMHG . DIRECTED WAIST HIGH COMPRESSION STOCKINGS FOR VARICOSE VEINS WITH BLE EDEMA DIRECTED ON IN THE MORNING, OFF AT NIGHT -DX I83.893 MEDICATION LIST REVIEWED AND RECONCILED WITH THE PATIENT PAST MEDICAL HISTORY CERVICALGIA LOW BACK PAIN RADIATING TO BOTH LEGS RADICULOPATHY AFFECTING UPPER EXTREMITY BIPOLAR DISORDER ANXIETY AND DEPRESSION VITAMIN D DEFICIENCY GERD (GASTROESOPHAGEAL REFLUX DISEASE) RESTLESS LEGS SYNDROME (RLS) EDEMA INSOMNIA OVERACTIVE BLADDER ALLERGIES N.K.D.A. SURGICAL HISTORY BACK SURGERY X3 2014 TWO NECK SURGERIES 2014 LEFT HAND SURGERY 2013 FULL HYSTERECTOMY, DONE FOR BENIGN REASONS 1980 GASTRIC SLEEVE 04/06/2016 BOTOX IN BLADDER 03/22/2017 KIDNEY STONE - BLASTED 08/2017 CYSTOSCOPY W/ RIGHT STENT REMOVAL 09/08/2017 BILATERAL OOPHRECTOMY FOR BENIGN TUMOR 1980 FAMILY HISTORY FATHER: , LUNG, SPREAD TO BONES, DIAGNOSED WITH CANCER MOTHER: , UTERIAN, BREAST AND LIVER, CANCER, HYPERTENSION, HEART DISEASE, STROKE SIBLINGS: ALIVE, BROTHER HAD PROSTATE CA 3 BROTHER(S) , 1 SISTER(S) . 1 SON(S) - HEALTHY. MOTHER HAD PANCREATIC CANCER\\\\\\\\\\\\\\\\NDENIES FAMILY HX OF MELANOMA. SOCIAL HISTORY GENERAL: TOBACCO USE ARE YOU A:NONSMOKER HIV / HEP-C SCREENING HIV TEST OFFERED TO PATIENT:YES DATE OFFERED:05/16/2018 TEST ACCEPTED:YES HEP-C TEST OFFERED TO PATIENT:YES DATE OFFERED:05/16/2018 TEST ACCEPTED:YES BROCHURE PROVIDED TO PATIENTYES OTHERS AT HOME: SPOUSE. EDUCATION LEVEL OF EDUCATION:HIGH SCHOOL DIET: REGULAR. LANGUAGE LANGUAGES SPOKEN:YI DOMESTIC VIOLENCE DO YOU FEEL SAFE IN YOUR ENVIRONMENT?YES BMI CARE GOAL FOLLOW-UP ABOVE NORMAL BMI FOLLOW-UPDIETARY MANAGEMENT EDUCATION, GUIDANCE, AND COUNSELING RECREATIONAL DRUG USE DRUG USE?NO EXERCISE: NO REGULAR EXERCISE. LEARNING BARRIERS / SPECIAL NEEDS CHANGE FROM LAST VISIT?NO BARRIERS TO LEARNING?NO HEARING IMPAIRED?NO VISION IMPAIRED?YES COGNITIVELY IMPAIRED?NO :CORRECTIVE LENSES READINESS TO LEARN?YES LEARNING PREFERENCES?NO LEARNING CAPABILITIES PRESENT?YES EMOTIONAL BARRIERS?NO SPECIAL DEVICES?YES :CANE, WHEELCHAIR OCCASSIONALLY PRINCIPAL DATA ARCHITECT NEEDED?NO PAIN CLINIC PFS, CLERGY, PUBLIC HEALTH REFERRALS HAS THE PATIENT BEEN EDUCATED REGARDING HIS/HER PLAN OF CARE?YES HAS THE PATIENT BEEN EDUCATED REGARDING PAIN, THE RISK FOR PAIN, THE IMPORTANCE OF EFFECTIVE PAIN MANAGEMENT, AND THE PAIN ASSESSMENT PROCESS?YES LATEX QUESTIONNAIRE LATEX ALLERGY : HAVE YOU EVER DEVELOPED ANY TYPE OF REACTION AFTER HANDLING LATEX PRODUCTS SUCH RUBBER GLOVES, CONDOMS, DIAPHRAGMS, BALLOONS, SOCKS, OR UNDERWEAR?NO LATEX ALLERGY : HAVE YOU EVER DEVELOPED ANY TYPE OF REACTION DURING OR AFTER DENTAL APPOINTMENT, VAGINAL/RECTAL EXAMINATION, SURGICAL PROCEDURE, OR ANY OTHER EXPOSURE?NO DATE ASKED : 08/26/2018 LATEX RISK : HAVE YOU EVER HAD ANY DIFFICULTY BREATHING OR HIVES AFTER EATING OR HANDLING ANY FRUITS, OR VEGETABLES; SUCH KIWI, BANANAS, STONE FRUITS, OR CHESTNUTSNO LATEX RISK : DO YOU HAVE A PREVIOUS PERSONAL HISTORY OF MORE THAN NINE SURGERIES, SPINA BIFIDA, OR REPEATED CATHERTIZATIONS? NO LATEX RISK : ARE YOU FREQUENTLY EXPOSED TO LATEX PRODUCTS IN YOUR OCCUPATION?NO CAFFEINE CAFFEINE USE?YES HOW OFTEN AND HOW MUCH? EVERY ONCE IN AWHILE ADVANCE DIRECTIVE ADVANCE DIRECTIVE DISCUSSED WITH PATIENT:YES PT DOES NOT HAVE ANY ADVANCED DIRECTIVES AND SHE DECLINES INFORAMATION ON HCP AT THIS TIME. BAPTISM [id number] NONE MARITAL STATUS: . ALCOHOL SCREENING POINTS: 1, INTERPRETATION: NEGATIVE. OCCUPATION: UNEMPLOYED. SEXUAL HX HAD SEX IN THE LAST 12 MONTHS (VAGINAL, ORAL, OR ANAL)?NO LMP:HYSTER HAVE YOU EVER HAD AN STD?NO 07/26/18 REVIEWED WITH PT. ADREVIEWED WITH PT 08/26/18 1155 LASREVIEWED WITH PATIENT 09/23/28 1142 JS. HOSPITALIZATION/MAJOR DIAGNOSTIC PROCEDURE CHILDBIRTH 1977 SURGERIES REVIEW OF SYSTEMS REVIEWED BY: PROVIDER: PÉREZ QUINTERO MD . CONSTITUTIONAL: ANY CHANGE IN YOUR MEDICAL CONDITION? NO . CHILLS NO . FEVER NO . INFECTION: DO YOU HAVE NEW INFECTIONS? NO . DO YOU HAVE HISTORY OF MRSA? NO . MUSCULOSKELETAL: ANY NEW PATTERNS OF PAIN OR NUMBNESS? NO . GASTROENTEROLOGY: ANY NEW CHANGE IN BOWEL CONTROL? NO . GENITOURINARY: ANY NEW CHANGE IN BLADDER CONTROL? NO . IS THERE A CHANCE YOU COULD BE ? NO . HEMATOLOGY/LYMPH: DO YOU TAKE ANY BLOOD THINNERS? (FOR EXAMPLE- COUMADIN, PLAVIX, AGGRENOX, PLATEL, PRADAXA, OR XARELTO) NO . WHEN WAS YOUR LAST DOSE? DATE: TIME: . NEUROLOGY: HAVE YOU FALLEN IN THE PAST 12 MONTHS? NO . ANY NEW EXTREMITY NUMBNESS OR WEAKNESS? NO . CARDIOLOGY: DO YOU HAVE A PACEMAKER OR DEFIBRILLATOR? NO . RESPIRATORY: HAVE YOU BEEN SICK IN THE PAST WEEK? NO . FEVER NO . FLU LIKE SYMPTOMS? NO . COUGH NO . INTEGUMENTARY: DO YOU HAVE ANY RASHES OR OPEN SORES? NO . ALLERGIC/IMMUNO: ARE YOU ALLERGIC TO IV DYE? NO . ANY NEW ALLERGIES? NO . PSYCHIATRIC: DO YOU HAVE THOUGHTS OF HURTING YOURSELF OR SOMEONE ELSE? NO . ARE YOU ABUSED, NEGLECTED, OR IN AN UNSAFE ENVIRONMENT? NO . ENDOCRINOLOGY: ARE YOU DIABETIC? NO . OTHER: DO YOU NEED ANY PRESCRIPTIONS? NO . IF YES, PLEASE LIST: ____ . ANY NEW PROBLEMS WITH YOUR MEDICATIONS? NO . WHEN DID YOU LAST EAT? ____ . WHEN DID YOU LAST DRINK? ____ . WHAT DID YOU LAST DRINK? ____ . NAME OF PERSON DRIVING YOU HOME? ____ . DO YOU HAVE ANY OTHER QUESTIONS OR CONCERNS NO . VITAL SIGNS WT 253.4 LBS, HT 66.5 IN, BMI 40.28 INDEX, BP 132/81 MM HG, HR 83 /MIN, RR 18 /MIN, TEMP 97.5 F, OXYGEN SAT % 92%, NA INITIALS SC 14:38. EXAMINATION GENERAL EXAMINATION: PATIENT IS ALERT O X 3 AND COOPERATIVE. MRI OF THE LUMBAR SPINE DONE ON 08/31/2018 SHOWS POST LAMINECTOMY CHANGES. 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 NIETO' PAIN MANAGEMENT CASE. THE PATIENT IS STILL EXPERIENCING GOOD PAIN RELIEF FROM THE TRANSFORAMINAL LUMBAR EPIDURAL THAT WAS PERFORMED ON 10/12/2018 AND CURRENTLY DOES NOT NEED ANY OTHER INTERVENTIONS AT THE MOMENT. THE PATIENT WILL FOLLOW UP IN 2 MONTHS BUT WAS ADVISED TO CALL TO BE SEEN SOONER SHOULD THE PAIN RETURN BEFORE THEN. INSTRUCTIONS WERE GIVEN, QUESTIONS WERE ANSWERED, PATIENT REPORTS UNDERSTANDING AND AGREES WITH THE PLAN. I, KALYN CHAUDHARY, DOCUMENTED THE ABOVE INFORMATION ACTING A SCRIBE FOR DR. QUINTERO. I HAVE REVIEWED THE ABOVE DOCUMENT, WRITTEN BY KALYN TODDIBGianni AND I VERIFY THAT IT IS ACCURATE. . PROCEDURE CODES FA211 ESTABILISHED PATIENT [facility] CHARGE G8427 CURRENT MEDS W/DOSAGES DOCUMENTED G8730 PAIN ASSESS POS TOOL F/U PLAN DOC DISPOSITION & COMMUNICATION FOLLOW UP 2 MONTHS (REASON: F/U) ELECTRONICALLY SIGNED BY PÉREZ QUINTERO MD, MD ON 11/13/2018 AT 08:38 AM EDT DISCLAIMER : THIS IS A VISIT SUMMARY EXTRACTED FROM THE [employer] CHART. IT IS NOT A COPY OF THE [employer] PROGRESS NOTE. HALIE
== END ==
LOC: M PAIN 14:30
PROVIDERS: ATTEND Anesthesiology
DX: M96.1 Postlaminectomy syndrome, not elsewhere classified (principal); K21.9 Gastro-esophageal reflux disease without esophagitis; G25.81 Restless legs syndrome; E66.01 Morbid (severe) obesity due to excess calories; Z68.41 Body mass index [BMI] 40.0-44.9, adult; Z79.899 Other long term (current) drug therapy; Z98.84 Bariatric surgery status; Z86.59 Personal history of other mental and behavioral disorders

== ENCOUNTER → 2018-11-10 | Outpatient (REF) | payer MEDICARE, OTHER ==
[2018-11-10 11:23] LABS: BASO % 0.5 % (0.0-1.0); EOS # 0.2 10^3/uL (0.0-0.50); EOS % 4.2 % (0.0-3.0); HEMATOCRIT 37.8 % (36.0-47.0); HEMOGLOBIN 12.5 g/dl (12.0-15.5); LYMPH # 2.3 10^3/uL (1.5-4.5); LYMPH % 40.9 % (24.0-44.0); MEAN CORPUSCULAR HEMOGLOBIN 33.5 pg (27.0-33.0); MEAN CORPUSCULAR HGB CONC 33.1 g/dl (32.0-36.5); MEAN CORPUSCULAR VOLUME 101.3 fl (80.0-96.0); MONO # 0.5 10^3/uL (0.0-0.8); MONO % 8.6 % (0.0-5.0); NEUTROPHILS # 2.6 10^3/uL (1.8-7.7); NEUTROPHILS % 45.4 % (36.0-66.0); PLATELET COUNT, AUTOMATED 334 10^3/uL (150-450); RED BLOOD COUNT 3.73 10^6/uL (4.00-5.40); WHITE BLOOD COUNT 5.7 10^3/uL (4.0-10.0)
[2018-11-10 11:52] LABS: HEMOGLOBIN A1c 6.2 %
[2018-11-10 12:08] LABS: ALBUMIN 3.4 GM/DL (3.2-5.2); ALT/SGPT 23 U/L (12-78); BILIRUBIN,TOTAL 0.3 MG/DL (0.2-1.0); BLOOD UREA NITROGEN 11 MG/DL (7-18); CALCIUM LEVEL 8.8 MG/DL (8.8-10.2); CARBON DIOXIDE LEVEL 32 MEQ/L (21-32); CHLORIDE LEVEL 104 MEQ/L (98-107); CHOLESTEROL LEVEL 201 MG/DL (<200); CHOLESTEROL RISK RATIO 3.941 (<5); CREATININE FOR GFR 0.89 MG/DL (0.55-1.30); GLOMERULAR FILTRATION RATE > 60.0 (>45); GLUCOSE, FASTING 110 MG/DL (70-100); HDL CHOLESTEROL 51 MG/DL (>40); LDL CHOLESTEROL 119 MG/DL (<100); NON-HDL-C 150 MG/DL; POTASSIUM SERUM 4.1 MEQ/L (3.5-5.1); SODIUM LEVEL 143 MEQ/L (136-145); TOTAL PROTEIN 7.3 GM/DL (6.4-8.2); TRIGLYCERIDES LEVEL 153 MG/DL (<150)
== END ==
LOC: M SFHCLERA 07:40
PROVIDERS: ATTEND Family Medicine
DX: F43.23 Adjustment disorder with mixed anxiety and depressed mood (principal); Z79.899 Other long term (current) drug therapy